=== PATIENT | male | born 1960 | race Caucasian/White ===

== ENCOUNTER → 2019-12-05 | Outpatient (CLI) | payer BC ==
[~2019-12-05] MED LIST: ASPIR 8181 M1 PO; EZETIMIBE10 MG PO; LISINOPRIL-HCT1 EAC1 PO; LORCET 5-325 M1 EACH PO; ROSUVASTATIN CA40 MG PO; SYNTHROID150 MCG PO
== END ==
LOC: LAB 07:42
PROVIDERS: ATTEND Student in an Organized Health Care Education/Training Program
DX: Z01.812 Encounter for preprocedural laboratory examination (principal); Z11.59 Encounter for screening for other viral diseases

== ENCOUNTER 2019-12-08 08:14 | Observation (INO) | payer BC ==
[~2019-12-08] VITALS: Ht 172.7 cm; Wt 97.1 kg
--- NOTE | ~2019-12-08 | O ---
[facility] [place] [address] OPERATIVE REPORT Name: LES CAMARILLO Room #: 434-P [facility].Ronnell#: [id number] Admission: 12/08/19 Attend Phys: Scotty Beck MD Discharge: 12/08/19 Date of : 60 Report #: [id number] THIS REPORT FOR: cc: Duong Coelho Steven F. DO Chu, Peter Y. MD ~ CC: Lisbeth Coelho MD DATE OF SERVICE: 12/08/2019 PREOPERATIVE DIAGNOSES: Cholecystitis with cholelithiasis. POSTOPERATIVE DIAGNOSES: Cholecystitis with cholelithiasis. PROCEDURES PERFORMED: Laparoscopic cholecystectomy with cholangiogram. ANESTHESIA: General anesthesia. BLOOD LOSS: 10 mL. SURGEON: Scotty Beck MD FINDINGS: The gallbladder is plastered by adhesions from chronic irritation. The cystic duct is moderately dilated, may have passed a stone. Common bile duct is normal on intraoperative cholangiogram. No harm to the common duct seen on the cholangiogram. DESCRIPTION OF PROCEDURE: With the patient under general anesthesia, abdomen was prepped and draped in sterile fashion. Timeout was performed. The patient did receive preoperative IV antibiotics. A 0.25% Marcaine was used to anesthetize the skin and a 2 cm incision was made infraumbilically. Fascia was identified, grasped with hemostat. Fascia was then opened under visualization, 0 Vicryl suture placed on the fascia for retraction. With the sutures lifted anteriorly, Veress needle was then placed through the peritoneum. Abdominal cavity was insufflated with CO2. After reaching pneumoperitoneum, pressure of 13, an 11 mm trocar was placed into the pneumoperitoneum, no harm to underlying tissue. The patient's gallbladder is adhesed. Two 5 mm trocars were placed in the right upper quadrant and a 5 mm trocar in right epigastrium. The fundus part of the gallbladder was lifted cephalad. The adhesions were identified. The adhesions were taken down. The adhesions were quite dense and took lot of technique to free the gallbladder. Proximal part of the gallbladder was then isolated. The cystic artery was easily found. This was isolated, clipped x 2 proximally and 1 distally and then divided. The cystic duct was then [address] [address] OPERATIVE REPORT Name: CARLA CAMARILLOH Isauro Room #: 434-P [facility] Marcos Martínez#: [id number] Admission: 12/08/19 Attend Phys: Scotty Beck MD Discharge: 12/08/19 Date of : 60 Report #: [id number] identified. Cystic duct is moderately dilated, but the clip went across it easily. A clip was placed in junction of the gallbladder to the cystic duct. Opening was made in the cystic duct. Cholangiogram catheter was then inserted. This was held with a clip. Fluoroscopic cholangiogram was obtained. Contrast went into the cystic duct and then filled the common duct. The cholangiogram catheter was identified in the cystic duct, no harm to the common duct. There was a small extravasation of contrast at the cannulation site in the cystic duct towards the end of the injection. The catheter was then removed. The proximal cystic duct was then clipped x 2 and then divided. When I first made a little opening in the cystic duct, there was a slightly thick material in the cystic duct. There was no other artery found. The gallbladder was freed from the liver bed without difficulty. The gallbladder was placed in a specimen bag. Gallbladder was then retrieved through the infraumbilical port. Gallbladder was opened up. It did contain numerous small stones present. The liver bed was checked, hemostasis was excellent. Irrigation was aspirated out. Trocars removed. CO2 was evacuated as much as possible. The infraumbilical fascia defect was closed with [id number] 0 Vicryl x 2. Skin was irrigated, closed with 5-0 PDS. Steri-Strips applied. The patient tolerated the procedure well. By: 1143 1214 Scotty Beck MD /nt
[~2019-12-08 08:14] MED LIST changes: -LORCET 5-325 M1 EACH PO
[2019-12-08 09:08] LABS: HEMATOCRIT 41.2 % (42.0-52.0)
[2019-12-08 09:31] VITALS: BP 113/63
--- NOTE | 2019-12-08 11:54 | H ---
[facility] [place] [address] HISTORY AND PHYSICAL Name: LES CAMARILLO Room #: 150-1 [facility]#: [id number] Admission: 12/08/19 Attend Phys: Scotty Beck MD Discharge: Date of : 60 Report #: [id number] THIS REPORT FOR: cc: Duong Coelho,Scotty Morales MD ~ CC: Lisbeth Coelho MD DATE OF SERVICE: 12/08/2019 PREOPERATIVE DIAGNOSIS: Cholecystitis with cholelithiasis. HISTORY OF PRESENT ILLNESS: The patient is a 59-year-old who has had abdominal pain, which started in the last year. His last episode was 2 weeks ago and was worse than he has had. It lasted for several days to a week. No relationship to food. The patient says the pain is even at nighttime. Pain is located in the right upper quadrant along the ribs going to his back. Feels like a tightness pinching. No nausea, no vomiting, no bloating, no gas. The pain has a sharp nature to it. He has trouble breathing or moving when the pain comes on. The patient denies any bowel changes. No history of jaundice. No family history of gallbladder disease. No urinary issues. No change in color of her urine. The patient did have an ultrasound performed, which showed multiple gallstones within a nondistended gallbladder. No gallbladder wall thickening. No pericholecystic fluid. Bile duct is normal. The patient is here for a laparoscopic cholecystectomy. PAST MEDICAL HISTORY: The patient has a history of elevated cholesterol, high blood pressure, low thyroid. ALLERGIES: The patient is not allergic to anything. MEDICATIONS: Rosuvastatin 40 mg once a day, ezetimibe 10 mg once a day, levothyroxine 100 mcg a day, lisinopril HCTZ 20/12.5, aspirin 81 mg. PAST SURGICAL HISTORY: Carpal tunnel x2 in 2018. FAMILY HISTORY: Father at age 70 from heart attack. Mother at age 66 from lung cancer. There is elevated cholesterol and triglyceride in the family. 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 Does not smoke. The patient has about 2 alcoholic drinks a month. REVIEW OF SYSTEMS: The patient denies any chest pain, headache, blurred vision, [facility] [address] [place] [address] HISTORY AND PHYSICAL Name: LES CAMARILLO Room #: 150-1 [facility]#: [id number] Admission: 12/08/19 Attend Phys: Scotty Beck MD Discharge: Date of : 60 Report #: [id number] upper respiratory infection. No numbness or weakness. PHYSICAL EXAMINATION: GENERAL: The patient is a well-nourished male, in no acute distress. HEENT: Pupils react to light. Extraocular muscles are intact. Oropharynx is clear. NECK: Soft and supple, no masses. LUNGS: Clear to auscultation. HEART: Regular rate and rhythm. No murmur or gallop. ABDOMEN: Soft, nondistended, nontender. No mass, guarding or rigidity. He does have moderate tenderness in right upper quadrant. No ascites. EXTREMITIES: No cyanosis, clubbing, edema. NEUROLOGIC: Motor and sensory exams normal. IMPRESSION: The patient is a 59-year-old who started having pain towards the end of last year. He has had a few mild episodes since and then a bad episode in first part of October. No specific food intolerance. Pain is in the right upper quadrant. The patient is found to have gallstone on ultrasound. No history of jaundice. Bile duct is normal. The patient is recommended to undergo laparoscopic cholecystectomy. Procedure is discussed in detail. Risks of bleeding, infection, common bile duct injury were discussed. The patient understands the procedure and wishes to proceed. <ELECTRONICALLY SIGNED> By: Scotty Beck MD 12/08/19 1154 2146 Scotty Beck MD /nt
[2019-12-08 14:25] VITALS: BP 114/71
[2019-12-08 15:30] VITALS: BP 111/67
--- NOTE | 2019-12-08 16:51 | EKG ---
[facility] [place] [address] ELECTROCARDIOGRAM REPORT Name: LES CAMARILLO Room #: 434-[facility] M.R.#: [id number] Admission: 12/08/19 Attend Phys: Scotty Beck MD Discharge: Date of : 60 Report #: [id number] THIS REPORT FOR: cc: Duong Coelho Steven F. DO Lundgren, Craig H. 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
[2019-12-08] MEDS ORDERED: LORCET 5-325 M1 EACH PO (16:54)
[2019-12-08 17:14] VITALS: BP 111/67
--- NOTE | 2019-12-08 19:58 | NUR ---
Assumed care of pt. after surgery at 1200. Pt. is not complaining of any pain and asking if he can go home. Pt. ambulated to restroom independently. Pt. was discharge and left with and all belongings.
--- NOTE | 2019-12-11 18:06 | PATH ---
[facility] [address] [place] [address] PATHOLOGY RPT PROCEDURE Name: YEMI CAMARILLO F Room #: 434-P [facility] Marcos MEsteban#: [id number] Admission: 12/08/19 Date of : 60 Discharge: 12/08/19 Report #: [id number] Path Case #: [id number] [facility] Accession Number: [id number] . 01 Material submitted: . gallbladder - GALLBLADDER . 01 Clinical history: . Cholecystitis . 02 Diagnosis: Gallbladder, cholecystectomy: - Mild chronic cholecystitis. - Cholelithiasis. 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 02 Electronically signed: . Vida Rome MD, Pathologist NPI- [id number] . 01 Gross description: . Received in formalin labeled "Leno, Yemi, gallbladder" is a previously opened cholecystectomy specimen measuring 8.2 x 2.6 x 1.3 cm. The serosa is pink-cruz and smooth with a roughened hepatic bed and the specimen is opened to reveal cruz-green velvety mucosa without polyps or masses. The average wall thickness is 0.5 cm. Multiple black roughened calculi are present within the container and within the gallbladder, measuring in aggregate 1.5 x 1.5 x 1.0 cm and ranging from 0.1-0.9 cm in greatest dimension. Field Technical Assistant sections of the fundus and body and the cystic duct margin are submitted in A1. ([facility]; 12/10/2019) [facility] 12/10/2019 1247 Local . 02 Pathologist provided ICD-10: K80.10 . 02 CPT . 553631 Specimen Comment: A courtesy copy of this report has been sent to [phone], [phone] Specimen Comment: [phone], Specimen Comment: Report sent to ,DR DAVIS / DR URIBE Performed at: 01 [facility] [address], [place] [id number] MD Yoav Brown MD Phone: [phone] Performed at: [address] [address] PATHOLOGY RPT PROCEDURE Name: YEMI CAMARILLO Room #: 434-P [facility] Marcos Martínez#: [id number] Admission: 12/08/19 Date of : 60 Discharge: 12/08/19 Report #: [id number] Path Case #: [id number] [facility] [place] [address], [place], [place] [id number] MD Vida Rome MD Phone: [phone]
== END 2019-12-08 18:04 | disposition home or self-care (01) ==
LOC: OR → TBA 08:15 → OR 09:32 → 4S 13:20
PROVIDERS: ADMIT Surgery; ATTEND Surgery
DX: K80.10 Calculus of gallbladder with chronic cholecystitis without obstruction (principal); E78.00 Pure hypercholesterolemia, unspecified; I10 Essential (primary) hypertension; E03.9 Hypothyroidism, unspecified
CPT/HCPCS: 50010; 50101; 50249; 50411; 50555; 50558; 51489; 52265; 53307; 53310; 53312; 55245; 55317; 56462; 56525; 56526; 62110; 62900; 70005

== ENCOUNTER → 2020-07-26 | Outpatient (CLI) | payer OTHER ==
[~2020-07-26] MED LIST changes: +LORCET 5-325 M1 EACH PO
== END ==
LOC: CAT 08:45
PROVIDERS: ATTEND Neuromusculoskeletal Medicine & OMM
DX: Z13.6 Encounter for screening for cardiovascular disorders (principal); E78.00 Pure hypercholesterolemia, unspecified; I25.10 Atherosclerotic heart disease of native coronary artery without angina pectoris

== ENCOUNTER → 2020-08-23 | Outpatient (CLI) | payer BC | LOC: SJCVCIMAG 09:23 | PROVIDERS: ATTEND Internal Medicine | DX: R93.1 Abnormal findings on diagnostic imaging of heart and coronary circulation (principal); R07.89 Other chest pain; I10 Essential (primary) hypertension; E78.5 Hyperlipidemia, unspecified; R06.09 Other forms of dyspnea; R53.83 Other fatigue ==